=== PATIENT | male | born 1960 | race Caucasian/White ===

== ENCOUNTER 2022-02-26 05:53 | Inpatient (IN) | payer OTHER ==
[2022-02-26] MEDS ORDERED: ceFAZolin 2 GM in Premix Bag 1 BAG IV ONE (06:30)
[2022-02-26] MEDS ORDERED: ceFAZolin 2 GM in Sodium Chloride 0.9% 50 ML IV ONE ×2 (06:30)
[2022-02-26] MEDS ORDERED: Tranexamic Acid 770 MG in Sodium Chloride 0.9% 50 ML IV ONE (07:00)
[2022-02-26] MEDS ORDERED: Nozin Nasal Sanitizer NASBOTH SCH (07:00)
[2022-02-26] MEDS ORDERED: Lactated Ringers 1,000 ML IV SCH (07:00)
[2022-02-26] MEDS ORDERED: Midazolam 1 MG/ML 2 ML SDV ONE (07:50)
[2022-02-26] MEDS ORDERED: Propofol 200 MG/20 ML SDV ONE (07:50)
[2022-02-26] MEDS ORDERED: fentaNYL 100 MCG/2 ML SDV ONE (07:50)
[2022-02-26] MEDS: Bupivacaine 0.5% 30 ML SDV ONE ×2 (08:52→09:37)
[2022-02-26] MEDS ORDERED: ePHEDrine 50 MG/ML SDV ONE (09:05)
[2022-02-26] MEDS ORDERED: Lactated Ringers 1,000 ML ONE (09:27)
[2022-02-26] MEDS ORDERED: Magnesium Hydroxide 400 MG/5 ML Susp 30 ML Cup PO PRN (09:41)
[2022-02-26] MEDS ORDERED: Ondansetron 4 MG Tab.DIS PO PRN (09:41)
[2022-02-26] MEDS ORDERED: Morphine 2 MG/ML SYRINGE IVPUSH PRN (09:41)
[2022-02-26] MEDS ORDERED: Acetaminophen/oxyCODONE 325-5 MG Tab PO PRN (09:47)
[2022-02-26] MEDS: Sodium Chloride 0.9% 1,000 ML IV SCH ×2 (10:42→18:50)
[2022-02-26] MEDS: Ketorolac 15 MG/ML SDV IVPUSH SCH ×2 (11:12→19:18)
[2022-02-26] MEDS: Acetaminophen 325 MG Tab PO SCH ×3 (11:12→19:29)
[2022-02-26] MEDS: traMADol 50 MG Tab PO PRN ×2 (13:20→18:03)
[2022-02-26] MEDS: ceFAZolin 1 GM in Premix Bag 1 BAG IV SCH ×2 (14:13→21:29)
[2022-02-26] MEDS: oxyCODONE 5 MG Tab PO PRN ×2 (14:48→21:34)
[2022-02-26] MEDS: Nozin Nasal Sanitizer NASBOTH SCH (21:23)
[2022-02-26] MEDS: atorvaSTATin 20 MG Tab PO SCH (21:26)
[2022-02-26] MEDS: Aspirin 325 MG Tab.EC PO SCH (21:26)
[2022-02-27] MEDS: oxyCODONE 5 MG Tab PO PRN ×5 (01:42→21:11)
[2022-02-27] MEDS: Acetaminophen 325 MG Tab PO SCH ×6 (01:48→20:11)
[2022-02-27] MEDS: Ketorolac 15 MG/ML SDV IVPUSH SCH ×2 (03:04→10:27)
[2022-02-27] MEDS: Sodium Chloride 0.9% 1,000 ML IV SCH (03:08)
[2022-02-27] MEDS: Nozin Nasal Sanitizer NASBOTH SCH ×2 (08:11→21:10)
[2022-02-27] MEDS: Aspirin 325 MG Tab.EC PO SCH ×2 (08:12→21:11)
[2022-02-27] MEDS: Docusate Sodium 100 MG Cap PO SCH (08:12)
[2022-02-27] MEDS: atorvaSTATin 20 MG Tab PO SCH (21:11)
[2022-02-28] MEDS: Acetaminophen 325 MG Tab PO SCH ×7 (00:23→23:39)
[2022-02-28] MEDS: oxyCODONE 5 MG Tab PO PRN ×4 (00:41→11:45)
[2022-02-28] MEDS: Aspirin 325 MG Tab.EC PO SCH ×2 (09:46→20:19)
[2022-02-28] MEDS: Nozin Nasal Sanitizer NASBOTH SCH ×2 (09:46→20:19)
[2022-02-28] MEDS: Docusate Sodium 100 MG Cap PO SCH (09:46)
[2022-02-28] MEDS: traMADol 50 MG Tab PO PRN ×3 (12:45→20:24)
[2022-02-28] MEDS: atorvaSTATin 20 MG Tab PO SCH (20:19)
[2022-03-01] MEDS: traMADol 50 MG Tab PO PRN ×3 (01:31→11:18)
[2022-03-01] MEDS: Acetaminophen 325 MG Tab PO SCH ×3 (05:33→11:18)
[2022-03-01] MEDS: Docusate Sodium 100 MG Cap PO SCH (08:29)
[2022-03-01] MEDS: Aspirin 325 MG Tab.EC PO SCH (08:29)
[2022-03-01] MEDS: Nozin Nasal Sanitizer NASBOTH SCH (08:29)
== END 2022-03-01 14:50 | disposition home health service (06) | DRG 470 ==
LOC: JP.SDS 05:53 → JP.MS 09:41 → JP.SDS 02-27 09:58 → JP.MS 02-27 10:00
PROVIDERS: ADMIT Specialist; ATTEND Specialist
PROC: 0SRB01Z Replacement of Left Hip Joint with Metal Synthetic Substitute, Open Approach (ICD-10-PCS; principal; 2022-02-26)
DX: M17.12 Unilateral primary osteoarthritis, left knee (principal); E78.5 Hyperlipidemia, unspecified; Z20.822 Contact with and (suspected) exposure to COVID-19; Z86.73 Personal history of transient ischemic attack (TIA), and cerebral infarction without residual deficits; Z90.49 Acquired absence of other specified parts of digestive tract; Z79.82 Long term (current) use of aspirin; Z79.899 Other long term (current) drug therapy; Z88.8 Allergy status to other drugs, medicaments and biological substances
CPT/HCPCS: 72170; 97110-GP; 97116-GP; 97161-GP; 97530-GP; A9270-GY; C1713; C1776; J0690; J1885; J2250; J2704; J3010; J3490; J7030; J7120; U0002